=== PATIENT | male | born 1955 | race Caucasian/White ===

== ENCOUNTER 2016-12-01 06:09 | Emergency (ER) | payer OTHER ==
[2016-12-01] MEDS ORDERED: KETOROLAC TROMETHAMINE INJ/PF 30 MG/1 ML SDV IV ONE (06:34)
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
[2016-12-01 09:34] VITALS: BP 144/79
--- NOTE | 2016-12-01 10:50 | EKG REPORT ---
SEVERITY:- NORMAL ECG - SINUS RHYTHM : Confirmed by: Lukasz Padgett 01-Dec-2016 10:48:44
== END 2016-12-01 09:36 | disposition home or self-care (01) ==
LOC: ER 06:09
DX: S32.010A Wedge compression fracture of first lumbar vertebra, initial encounter for closed fracture (principal); S32.020A Wedge compression fracture of second lumbar vertebra, initial encounter for closed fracture; V43.52XA Car driver injured in collision with other type car in traffic accident, initial encounter; I10 Essential (primary) hypertension; Z85.828 Personal history of other malignant neoplasm of skin; Z85.819 Personal history of malignant neoplasm of unspecified site of lip, oral cavity, and pharynx
CPT/HCPCS: 99284; 96374; 72050; 72110; 72070; 93005; 93010; J1885